=== PATIENT | male | born 1970 | race Caucasian/White ===

== ENCOUNTER 2017-07-08 21:05 | Emergency (ER) | payer BC ==
[~2017-07-08] VITALS: Ht 180.3 cm; Wt 128.3 kg
[~2017-07-08 21:05] MED LIST: KADIAN50 MG PO; MOBIC7.5 MG PO; NOHOMEMEDS; PERCOCET 5/31 TABLET PO
[2017-07-08 22:17] LABS: HEMOGLOBIN 14.1 G/DL (12.5-16.6); MCH 30.9 PG (29.0-34.0); MCHC 34.4 G/DL (30.0-36.0); MCV 89.7 FL (86-99); PLATELET COUNT 226 K/uL (156-360); RBC DIS.WIDTH-CV 12.5 % (11.8-14.6); RBC DIS.WIDTH-SD 41.1 % (39-53); RED BLOOD COUNT 4.57 M/uL (4.00-5.50); WHITE BLOOD COUNT 10.8 K/uL (4.1-10.2)
[2017-07-08 22:32] LABS: CHLORIDE 107 mEq/L (99-109); POTASSIUM 4.1 mEq/L (3.7-5.4); SODIUM 140 mEq/L (136-147)
[2017-07-08 22:34] LABS: GLUCOSE 121 mg/dL (70-99)
[2017-07-08 22:37] LABS: GFR ESTIMATE (CALCULATED) > 59 mL/min/ (58.99-99999)
[2017-07-08 22:38] LABS: UREA NITROGEN (BUN) 22 mg/dL (9-23)
[2017-07-08 22:40] LABS: TROP-I INTERPRETATION NEGATIVE; TROPONIN-I < 0.01 ng/mL (0.0-0.30)
[2017-07-09 02:10] LABS: ALBUMIN 4.4 g/dL (3.2-4.8)
[2017-07-09 02:13] LABS: TOTAL PROTEIN 7.4 g/dL (6.4-8.3)
[2017-07-09 02:14] LABS: TOTAL BILIRUBIN 0.4 mg/dL (0.0-1.0)
[2017-07-09 02:16] LABS: ALKALINE PHOSPHATASE 43 IU/L (3-129)
[2017-07-09 02:18] LABS: AST (GOT) 15 IU/L (2-34); DIRECT BILIRUBIN 0.1 mg/dL (0.0-0.3)
[2017-07-09 02:19] LABS: ALT (GPT) 15 IU/L (3-49); LIPASE 140 U/L (1.0-51.0)
[2017-07-09 04:00] LABS: TROP-I INTERPRETATION NEGATIVE; TROPONIN-I 0.01 ng/mL (0.0-0.30)
[2017-07-09] MEDS ORDERED: PEPCID20 MG PO (04:16)
[2017-07-09 04:20] VITALS: BP 117/75
== END 2017-07-09 04:25 | disposition home or self-care (01) ==
LOC: EME 21:05
PROVIDERS: Emergency Medicine
DX: R07.89 Other chest pain (principal); K85.90 Acute pancreatitis without necrosis or infection, unspecified; Z90.49 Acquired absence of other specified parts of digestive tract
CPT/HCPCS: 71046; 74177; 80048; 80076; 83690; 84484; 85027; 93005; 99281; 99285; J2405; J7030; S0028